=== PATIENT | male | born 1995 | race Caucasian/White ===

== ENCOUNTER 2021-07-29 00:41 | Day surgery (SDC) | payer OTHER, SELFPAY ==
[2021-07-25 13:47] VITALS: BMI 52.9
--- NOTE | 2021-07-25 14:19 | PC.NURSE ---
Report to the Outpatient Waiting Room, entrance under the green pavilion located off [facility], at 1100 on 07-29-21. OR Time: 1300. - You and your visitor will be asked a series of questions to screen for COVID 19 for your protection. - Only one visitor is allowed at this time. - The patient visitor is requested to leave or wait in car when not with patient. - A mask is required within the hospital. Patients may have clear liquids (water, carbonated beverages, clear teas, apple juice) until 3 hours prior to surgery with a maximum of 20 ounces. 1000 - No food from midnight until time of surgery - Infants may have breast milk until 4 hours before surgery, infant formula 6 hours prior to surgery. - Children will be allowed to drink immediately following surgery. If applicable, please bring a bottle or sippy cup to assist with drinking. Juice, water, soda, and popsicles are readily available. For infants on formula, please bring formula the day of surgery. Pacifiers are allowed. Take the following medications with a SIP of water the morning of surgery: None Medications to discontinue per physician: Vitamins and supplements Date to take last dose: 07-26-21 Please no make-up, nail mongolian, hairspray, perfume, deodorant, or body powder the day of surgery. No jewelry (including any body piercings) or valuables the day of surgery, leave them at home. Please take a shower or bath the night before, or the morning of, surgery with an antibacterial soap. Wear comfortable, loose fitting clothing. Children are encouraged to wear pajamas. - Jewelry must be removed prior to entering the operating room. Rings and piercings that are not removed may be cut off. - The hospital will not accept responsibility for valuables. - Please leave all valuables, including medications, at home the day of surgery. If you are going home after surgery, a licensed commercial collections driver must drive you home. - NO public transportation without another adult. - We recommend that an adult stay with you for 24 hours following discharge. - We also recommend that you do not drive, make important decision, drink alcoholic beverages, or take any drugs that were not prescribed by your health care provider for at least 24 hours after your discharge time. For Pediatric surgeries, we recommend two adults accompany the child home (only one inside the building at this time). Follow any additional instructions given to you from your surgeon. If you or anyone in your household have experienced Covid symptoms in the past week, please notify your surgeon or the nurse liaison at the phone number below for possible testing. Telephone instructions given to Tio Govea and asked if any additional questions and then verbalized understanding. Patient advised to call surgeon office or pre surgery nurse liaison [phone] if any additional questions.
[2021-07-29] VITALS (9 sets, daily range): BP systolic 115–154; BP diastolic 77–92; PULSE 54–101; RESP 12–20; TEMP 36.4–36.5; O2SAT 94–100
--- NOTE | 2021-07-29 07:07 | WPDHPUPDATE1 ---
History and Physical Update Update Date/Time: 07/29/21 07:07 History and Physical has been reviewed, including an updated exam of the patient. There are NO changes in the patient's condition. Risks, benefits, and alternatives have been discussed and questions answered. Patient agrees to proceed with procedure.
[2021-07-29] MEDS: ACETAMINOPHEN 500 MG TABLET 1000 MG PO (10:14)
[2021-07-29] MEDS: KETOROLAC 15 MG/ML VIAL (*BKC) IV PUSH (10:22)
[2021-07-29] MEDS: LACTATED RINGERS 1,000 ML 30 ML IV CONT (10:23)
--- NOTE | 2021-07-29 10:46 | P.PNAN_ITS ---
Anes - Initial Pre Proc Eval Procedure: Operation Date: 07/29/21 13:00 Proposed Procedures p Right Carpal Tunnel Release - Cisco Mendez MD Date/Time: 07/29/21 10:46 Surgeon: Cisco Mendez MD Pre Op Diagnosis: right wrist carpal tunnel syndrome Patient Data Age: 25 Gender: M Height: 1.71 m Weight: 149.6 kg Last Vital Signs Temp 36.5 C 07/29/21 10:06 Pulse 54 L 07/29/21 10:06 Resp 16 07/29/21 10:06 BP 154/92 H 07/29/21 10:06 Pulse Ox 98 07/29/21 10:06 Allergies Allergy/AdvReac Type Severity Reaction Status Date / Time Penicillins Allergy Unknown Unknown Verified 07/25/21 13:37 Home Medications Medication Instructions Recorded Confirmed Type omeprazole 20 mg tablet,delayed 20 mg PO DAILY 04/14/21 07/29/21 History release albuterol sulfate 2 puff INHALATION PRN PRN 07/25/21 07/29/21 History cholecalciferol (vitamin D3) 25 mcg PO DAILY 07/25/21 07/29/21 History [Vitamin D3] vitamin B complex [B 1 tablet PO DAILY 07/25/21 07/29/21 History Complex-Vitamin B12] Patient hx anesthesia problems: post op nausea/vomiting Family hx anesthesia problems: post op nausea/vomiting Results Review: All pre-operative results and documents have been reviewed as part of the pre-operative evaluation. [facility] Past Medical History Medical History Asthma GERD (gastroesophageal reflux disease) Family History Family History Mother Breast cancer Social History Social History Smoking status: Never smoker Second hand tobacco smoke exposure: No Alcohol intake: never Substance use: never Substance use type: does not use Living arrangements: with family Spiritual care concerns: No Anes - Eval Final PreProcedure Day of Procedure 07/29/21 10:46 Patient weight: super morbidly obese Heart: regular rate and rhythm Lungs: clear to auscultation Airway: Mallampati scale class II Neurological: alert and oriented Last oral intake: >/= 8 hours ASA classification: III Emergent: no Anesthetic plan: proceed Anesthesia type and monitoring: general LMA and standard monitoring Results Review: All pre-operative results and documents have been reviewed as part of the pre-operative evaluation. Informed Consent: The patient's anesthetic plan and its attendant risks and benefits were discussed with the patient/family/POA. Questions were solicited and answers provided to the satisfaction of the patient/family/POA.
[2021-07-29] MEDS: ceFAZolin 3 GM/D5W 100 ML 100 ML IVPB (12:12)
[2021-07-29] MEDS: LIDO 1%/EPINEPHRINE 1:100,000 50 ML VIAL INFILTRATE (12:39)
[2021-07-29] MEDS: ONDANSETRON INJ 4 MG/2 ML VIAL IV PUSH (13:30)
--- NOTE | 2021-07-29 16:56 | W.PM.PROC2 ---
Procedure Note - Detailed Date of Procedure 07/29/21 Pre-op Diagnosis right wrist carpal tunnel syndrome Post-op Diagnosis Same Procedure Performed Right Carpal tunnel release Surgeon Cisco Mendez MD Anesthesia General Description of Procedure Operative details. After sedation was administer, the hand was prepped and draped in the usual sterile fashion. The proposed incision was marked using typical anatomic landmarks. 4ML 0.5% Marcaine with epinephrine was injected along the incision line and at the distal forearm. The limb was exsanguinated and the tourniquet inflated to 250 millimeters of mercury. A longitudinal incision was taken sharply. Dissection was brought down to the transverse carpal ligament. Under direct vision the ligament was incised sharply. The proximal release was carried out with dissection scissors. The contents of the carpal canal were protected with a [place] elevator. The transverse carpal ligament was confirmed to be widely patent. The skin was closed with interrupted 3-0 Prolene suture. Sterile dressing was applied with a soft splint at the wrist. The patient was extubated and brought to the recovery room in stable condition. Estimated Blood Loss 1 Tourniquet Time 9 Pathology None sent Complications No immediate complications Condition Stable Disposition PACU [facility] Billing Surgery - Charge Forward: Surgery Billing
== END 2021-07-29 15:15 | disposition home or self-care (01) ==
PROVIDERS: PCP Internal Medicine Infectious Disease; Visit Provider Orthopaedic Surgery
PROC: (CPT 64721; principal; 2021-07-29 13:00)
DX: G56.01 Carpal tunnel syndrome, right upper limb (principal); J45.909 Unspecified asthma, uncomplicated; K21.9 Gastro-esophageal reflux disease without esophagitis; Z79.51 Long term (current) use of inhaled steroids; E66.01 Morbid (severe) obesity due to excess calories; Z68.43 Body mass index [BMI] 50.0-59.9, adult
CPT/HCPCS: 64721; A9270; J0690; J1885; J2250; J2405; J2704; J3010; J7120

== ENCOUNTER 2021-08-12 00:17 | Day surgery (SDC) | payer OTHER, SELFPAY ==
--- NOTE | 2021-08-08 15:19 | SUR.PREOP ---
Report to the Outpatient Waiting Room, entrance under the green pavilion located off [facility], at time 0700 on date 08/12/21. OR Time: 0900. - You and your visitor will be asked a series of questions to screen for COVID 19 for your protection. - Only one visitor is allowed at this time. - The patient visitor is requested to leave or wait in car when not with patient. - A mask is required within the hospital. Patients may have clear liquids (water, carbonated beverages, clear teas, apple juice) until 3 hours prior to surgery with a maximum of 20 ounces. - NO CLEAR LIQUIDS AFTER 0600 - No food from midnight until time of surgery - Infants may have breast milk until 4 hours before surgery, infant formula 6 hours prior to surgery. - Children will be allowed to drink immediately following surgery. If applicable, please bring a bottle or sippy cup to assist with drinking. Juice, water, soda, and popsicles are readily available. For infants on formula, please bring formula the day of surgery. Pacifiers are allowed. Take the following medications with a SIP of water the morning of surgery: BRING ALBUTEROL INHALER WITH YOU THE DAY OF SURGERY Medications to discontinue per physician STOP VITAMINS 08/09/21 Please no make-up, nail hong konger, hairspray, perfume, deodorant, or body powder the day of surgery. No jewelry (including any body piercings) or valuables the day of surgery, leave them at home. Please take a shower or bath the night before, or the morning of, surgery with an antibacterial soap. Wear comfortable, loose fitting clothing. Children are encouraged to wear pajamas. - Jewelry must be removed prior to entering the operating room. Rings and piercings that are not removed may be cut off. - The hospital will not accept responsibility for valuables. - Please leave all valuables, including medications, at home the day of surgery. If you are going home after surgery, a licensed steam train driver must drive you home. - NO public transportation without another adult. - We recommend that an adult stay with you for 24 hours following discharge. - We also recommend that you do not drive, make important decision, drink alcoholic beverages, or take any drugs that were not prescribed by your health care provider for at least 24 hours after your discharge time. For Pediatric surgeries, we recommend two adults accompany the child home (only one inside the building at this time). Follow any additional instructions given to you from your surgeon. If you or anyone in your household have experienced Covid symptoms in the past week, please notify your surgeon or the nurse liaison at the phone number below for possible testing. Telephone instructions given to YANELY MORALES and asked if any additional questions and then verbalized understanding. Patient advised to call surgeon office or pre surgery nurse liaison [phone] if any additional questions.
[2021-08-08 15:28] VITALS: BMI 51.0
[2021-08-12] VITALS (9 sets, daily range): BP systolic 115–147; BP diastolic 67–91; PULSE 87–99; RESP 14–20; TEMP 36.6–37; O2SAT 95–100
--- NOTE | 2021-08-12 07:07 | WPDHPUPDATE1 ---
History and Physical Update Update Date/Time: 08/12/21 07:07 History and Physical has been reviewed, including an updated exam of the patient. There are NO changes in the patient's condition. Risks, benefits, and alternatives have been discussed and questions answered. Patient agrees to proceed with procedure. Proceed with left carpal tunnel release, and suture removal right wrist.
--- NOTE | 2021-08-12 11:54 | WPDANESEPPF ---
Anes - Initial Pre Proc Eval Procedure: Operation Date: 08/12/21 13:30 Proposed Procedures p Left Carpal Tunnel Release - Cisco Mendez MD Date/Time: 08/12/21 11:54 Surgeon: Cisco Mendez MD Pre Op Diagnosis: left carpal tunnel syndrome Patient Data Age: 25 Gender: M Height: 1.71 m Weight: 150 kg Allergies Allergy/AdvReac Type Severity Reaction Status Date / Time Penicillins Allergy Unknown Unknown Verified 08/08/21 15:13 Home Medications Medication Instructions Recorded Confirmed Type omeprazole 20 mg tablet,delayed 20 mg PO DAILY 04/14/21 08/08/21 History release albuterol sulfate 90 mcg/actuation 2 puff inhalation PRN PRN Wheezing 07/25/21 08/08/21 History aerosol inhaler cholecalciferol (vitamin D3) 25 25 mcg PO DAILY 07/25/21 08/08/21 History mcg (1,000 unit) tablet (Vitamin D3) vitamin B complex (B 1 tablet PO DAILY 07/25/21 08/08/21 History Complex-Vitamin B12) Patient hx anesthesia problems: none Family hx anesthesia problems: none Results Review: All pre-operative results and documents have been reviewed as part of the pre-operative evaluation. [facility], [facility] Past Medical History Medical History Asthma GERD (gastroesophageal reflux disease) Family History Family History Mother Breast cancer Social History Social History Smoking status: Never smoker Second hand tobacco smoke exposure: No Alcohol intake: never Substance use: never Substance use type: does not use Spiritual care concerns: No Anes - Eval Final PreProcedure Day of Procedure 08/12/21 11:54 Patient weight: super morbidly obese Heart: regular rate and rhythm Lungs: clear to auscultation Airway: Mallampati scale class II Neurological: alert and oriented Last oral intake: >/= 8 hours ASA classification: III Emergent: no Anesthetic plan: proceed Anesthesia type and monitoring: general LMA and standard monitoring Results Review: All pre-operative results and documents have been reviewed as part of the pre-operative evaluation. Informed Consent: The patient's anesthetic plan and its attendant risks and benefits were discussed with the patient/family/POA. Questions were solicited and answers provided to the satisfaction of the patient/family/POA.
[2021-08-12] MEDS: ACETAMINOPHEN 500 MG TABLET 1000 MG PO (11:58)
[2021-08-12] MEDS: KETOROLAC 15 MG/ML VIAL (*BKC) IV PUSH (11:58)
[2021-08-12] MEDS: LACTATED RINGERS 1,000 ML 30 ML IV CONT ×2 (11:59→15:25)
[2021-08-12] MEDS: ceFAZolin 3 GM/D5W 100 ML 100 ML IVPB (13:30)
[2021-08-12] MEDS: BUPIVACAINE HCL 0.5% PF 30 ML VIAL INFILTRATE (13:57)
[2021-08-12] MEDS: fentaNYL CITRATE INJ (*CRX) 100 MCG/2 ML VIAL 25 MCG IV PUSH ×4 (15:00→15:06)
[2021-08-12] MEDS: ONDANSETRON INJ 4 MG/2 ML VIAL IV PUSH (15:25)
--- NOTE | 2021-08-12 16:17 | P.OP_ITS ---
Procedure Note - Detailed Date of Procedure 08/12/21 Pre-op Diagnosis left carpal tunnel syndrome Post-op Diagnosis Same Procedure Performed Left 1. Carpal tunnel release Surgeon Cisco Mendez MD Hospital Chief Financial Officer Sharon Yoder PA-C Anesthesia General Description of Procedure Operative details. After sedation was administer, the hand was prepped and draped in the usual sterile fashion. The proposed incision was marked using typical anatomic landmarks. 6ML 0.5% Marcaine was injected along the incision line and at the distal forearm. The limb was exsanguinated and the tourniquet inflated to 250 millimeters of mercury. A longitudinal incision was taken sharply. Dissection was brought down to the transverse carpal ligament. Under direct vision the ligament was incised sharply. The proximal release was carried out with dissection scissors. The contents of the carpal canal were protected with a [place] elevator. The transverse carpal ligament was confirmed to be widely patent. The skin was closed with interrupted 3-0 Prolene suture , and a sterile dressing was applied with a soft splint at the wrist. The patient was extubated and brought to the recovery room in stable condition. Estimated Blood Loss 1 Pathology None sent Complications No immediate complications Condition Stable Disposition PACU [facility] Billing Surgery - Charge Forward: Surgery Billing
== END 2021-08-12 16:10 | disposition home or self-care (01) ==
PROVIDERS: PCP Internal Medicine Infectious Disease; Visit Provider Orthopaedic Surgery
PROC: (CPT 64721; principal; 2021-08-12 13:30)
DX: G56.02 Carpal tunnel syndrome, left upper limb (principal); J45.909 Unspecified asthma, uncomplicated; K21.9 Gastro-esophageal reflux disease without esophagitis; Z79.51 Long term (current) use of inhaled steroids; E66.01 Morbid (severe) obesity due to excess calories; Z68.43 Body mass index [BMI] 50.0-59.9, adult
CPT/HCPCS: 64721; A9270; J0690; J1100; J1885; J2250; J2405; J2704; J3010; J7120